=== PATIENT | male | born 1950 | race African-American/Black ===

== ENCOUNTER → 2017-03-12 | Day surgery (SDC) | payer MEDICARE, MEDICAID ==
[~2017-03-12] MED LIST: BACL-141 PO; GABA-531 PO; HYDR-519 PO; SODIUM CHLORIDE 0.9% 1,000 ML IV SCH; TRAMADOL; VICODIN; [UNRECOGNIZED DRUG - MIXTURE] PO
== END | disposition home or self-care (01) ==
LOC: OR 11:38
PROVIDERS: ATTEND Podiatrist Foot & Ankle Surgery
DX: M21.612 Bunion of left foot (principal); Z53.8 Procedure and treatment not carried out for other reasons
CPT/HCPCS: J7030

== ENCOUNTER 2017-03-14 06:28 | Day surgery (SDC) | payer MEDICARE, MEDICAID ==
[~2017-03-14] VITALS: Ht 175.3 cm; Wt 99.8 kg
[~2017-03-14 06:28] MED LIST changes: -BACL-141 PO; -GABA-531 PO; -HYDR-519 PO; -SODIUM CHLORIDE 0.9% 1,000 ML IV SCH; -[UNRECOGNIZED DRUG - MIXTURE] PO
[2017-03-14] MEDS ORDERED: LACTATED RINGERS 1,000 ML IV SCH (06:55)
[2017-03-14] MEDS ORDERED: TRIAMCINOLONE ACETONIDE 40MG/ML 1ML VIAL ONE (07:25)
[2017-03-14] MEDS ORDERED: DEXAMETHASONE 4MG/ML 1ML VIAL ONE (07:25)
[2017-03-14] MEDS ORDERED: GENTAMICIN SULF 40MG/ML 2ML VIAL ONE (07:26)
[2017-03-14] MEDS ORDERED: BUPIVACAINE HCL/PF 0.5% (5MG/ML) 10ML ONE ×2 (07:26→07:27)
[2017-03-14] MEDS ORDERED: BACITRACIN ZINC 15GM TUBE TOP ONE (07:26)
[2017-03-14] MEDS ORDERED: NORMAL SALINE 0.9% 10 ML SYR ONE (07:27)
[2017-03-14] MEDS ORDERED: LIDOCAINE HCL 1% 20ML VIAL (Pyxis) INJ ONE ×2 (07:27→07:41)
[2017-03-14] MEDS ORDERED: BACITRACIN 50,000 UNITS/VIAL ONE (07:28)
[2017-03-14] MEDS ORDERED: CEFAZOLIN SODIUM 1000MG/VIAL ONE ×2 (07:41→08:16)
[2017-03-14] MEDS ORDERED: PROPOFOL 200MG/20ML VIAL IV ONE (07:41)
[2017-03-14] MEDS ORDERED: FENTANYL CITRATE/PF 50MCG/ML 2ML VIAL ONE (07:42)
[2017-03-14] MEDS ORDERED: ONDANSETRON HCL 4MG/2ML VIAL IV PRN (08:45)
[2017-03-14] MEDS ORDERED: HYDROMORPHONE HCL/PF 2MG/ML CPJ IV PRN (08:45)
[2017-03-14] MEDS ORDERED: MEPERIDINE HCL/PF 25MG/ML CPJ IV PRN (08:45)
[2017-03-14] MEDS ORDERED: LABETALOL HCL 20MG/4ML CARPUJECT IV PRN (08:45)
[2017-03-14] MEDS ORDERED: HYDR-519 PO (08:56)
[2017-03-14] MEDS ORDERED: GABA-531 PO (08:56)
[2017-03-14] MEDS ORDERED: BACL-141 PO (08:56)
[2017-03-14] MEDS ORDERED: [UNRECOGNIZED DRUG - MIXTURE] PO (08:57)
[2017-03-14] MEDS ORDERED: HYDROMORPHONE HCL/PF 2MG/ML (OR) ONE (10:08)
== END 2017-03-14 12:15 | disposition home or self-care (01) ==
LOC: OR 06:28
PROVIDERS: ATTEND Podiatrist Foot & Ankle Surgery
DX: M21.612 Bunion of left foot (principal); M20.42 Other hammer toe(s) (acquired), left foot; M24.575 Contracture, left foot; M86.172 Other acute osteomyelitis, left ankle and foot
CPT/HCPCS: 28285; 28306; 73630; 88304; C1713; J0690; J1100; J1170; J1580; J3010; J3301; J3490; J7120; A4216; J2704

== ENCOUNTER 2019-12-25 02:43 | Emergency (ER) | payer MEDICARE, MEDICAID ==
[~2019-12-25] VITALS: Ht 175.3 cm; Wt 98.0 kg
[~2019-12-25 02:43] MED LIST changes: +BACL-141 PO; +GABA-531 PO; +HYDR-519 PO; -VICODIN; +[UNRECOGNIZED DRUG - MIXTURE] PO
[2019-12-25] MEDS ORDERED: NALOXONE HCL 0.4 MG/ML 1ML VIAL IM ONE (03:30)
[2019-12-25 05:20] VITALS: BP 150/86
== END 2019-12-25 07:23 | disposition home or self-care (01) ==
LOC: ER 02:43
DX: G93.40 Encephalopathy, unspecified (principal); J96.90 Respiratory failure, unspecified, unspecified whether with hypoxia or hypercapnia; F19.10 Other psychoactive substance abuse, uncomplicated; I10 Essential (primary) hypertension
CPT/HCPCS: 93005; 96372; 99283; J2310